=== PATIENT | male | born 1935 | race African-American/Black ===

== ENCOUNTER 2017-02-22 14:57 | Inpatient (IN) | payer OTHER ==
[~2017-02-22] VITALS: Ht 177.8 cm; Wt 64.9 kg
--- NOTE | ~2017-02-22 | EKG ---
[address] [place] [address] ELECTROCARDIOGRAM REPORT Name: LAURO NORTH Room #: 444-P ADM IN M.R.#: [id number] Admission: 02/22/17 Attend Phys: Swapnil Keita DO Discharge: Date of : 37 Report #: [id number] THIS REPORT FOR: //name// [facility] ED Test Date: 2017-02-22 Test Time: 15:53:46 Pat Name: LAURO NORTH Department: Room: 444 Gender: M [employer]: MZKENDALL : 1935 Requested By: Andrew Jimenez Order Number: [id number] MD: Shun Rodriguez Measurements Intervals [place] Rate: 79 P: MT: QRS: 67 QRSD: 100 T: 90 QT: 362 QTc: 416 Interpretive Statements Normal sinus rhythm Nonspecific repol abnormality, diffuse leads Artifact in lead(s) I,III,V1,V2,V3,V4,V5,V6 Compared to ECG 12/26/2016 15:43:52 Early repolarization now present no significant change was found Electronically Signed On 02-23-2017 11:48:02 CDT by Shun Rodriguez [email or web address] <ELECTRONICALLY SIGNED> By: Shun Rodriguez MD, [facility] 02/23/17 1148 1553 1553 Shun Rodriguez MD, FAC /EPI
--- NOTE | ~2017-02-22 | EEG ---
Formerly [facility] [place] [address] ELECTROENCEPHALOGRAM Name: LAURO NORTH Room #: 446-P [facility] IN M.R.#: [id number] Admission: 02/22/17 Attend Phys: Jocy Callahan MD Discharge: 02/26/17 Date of : 37 Report #: [id number] THIS REPORT FOR: //name// CC: Swapnil Alston DATE OF SERVICE: 02/24/2017 This patient is being evaluated for altered mental status. EEG was done to further evaluate that. EEG was done by placing the electrodes by standard 10-20 system of electrode placement. Background activity in this patient does go up to about 9-10 Hz, but throughout the record, it is intermixed with theta range slowing on both sides. Photic stimulation is unremarkable. The patient appeared to be drowsy during part of this EEG and that is associated with bilateral slowing. Photic stimulation is unremarkable. IMPRESSION: This is a moderately abnormal EEG because it is intermixed with theta range slowing on both sides. That is a nonspecific abnormality, which can occur with encephalopathy, dementia, effect of psychotropic medication, etc. No active epileptiform activity was noticed. Thank you very much for this referral. <ELECTRONICALLY SIGNED> By: Domenic Gonzalez MD 03/02/17 0731 [id number] 1714 Domenic Gonzalez MD /nt
[~2017-02-22 14:57] MED LIST: ACETAMINOPHEN325 M1 PO; AMLODIPINE BESY10 MG PO; ARICEPT 5 MG TAB5 MG PO; ARICEPT10 M1 PO; ARICEPT10 MG PO; ASPIR 8181 MG PO; ASPIRIN81 M2 PO; B12INJ PO; CARDURA2 MG PO; CARDURA4 MG PO; CIPROFLOXACIN500 M1 PO; CLARITIN10 MG PO; COLACE100 MG PO; ENOXAPARIN40 MG/0.1 SUBQ; EXELON1 EAC2 TRANSDERM; EXELON4.5 MG TRANSDERM; GLIPIZIDE ER5 MG PO; GLUCAGEN1 M2 IM; GLUCOPHAGE XR500 MG PO; GLUCOSE4 GM PO; GLUCOTROL XL2.5 MG PO; K-DUR 20 MEQ T20 MEQ PO; KLOR-CON 1010 MEQ PO; KOMBIGLYZE XR1 EAC1 PO; KOMBIGLYZE XR1 EAC2; LAMICTAL 25 MG25 M1 PO; LAMICTAL XR25 MG PO; LIPITOR 20 MG T20 M1 PO; LISINOPRIL20 MG PO; LISINOPRIL40 MG PO; LOPRESSOR 50 MG50 M1 PO; LOPRESSOR25 PO; LOPRESSOR50 PO; METFORMIN HCL1000 M1 PO; METOPROLOL TARTRATE PO; MIRALAX255 GM PO; NAMENDA 5 MG TAB5 M1 PO; NAPROSYN250 MG PO; NAPROSYN375 MG PO; NAPROSYN500 MG PO; NORVASC5 MG PO; NOVOLOG100 UNIT/1 SUBQ; OXYBUTYNIN 5 MG5 M1 OR; REGLAN 10 MG TA10 MG PO; REMERON15 MG PO; SENNA CONCENTR8.6 MG PO; SEROQUEL 12.512.5 MG PO; SEROQUEL 25 MG25 M1 PO; SIMVASTATIN20 MG PO; TAMSULOSIN HCL0.4 MG PO; TOPROL XL50 MG PO; TOVIAZ4 MG PO; TYLENOL325 MG PO; VANCOMYCIN100 MG/M1 PO; VITAMIN B-12500 MCG PO; VITAMIN D1000 UNI1 PO; VITAMIN D31000 UNI2 PO; VYTORIN 10-401 EACH PO; ZETIA10 MG PO; ZOCOR20 MG PO; [UNRECOGNIZED DRUG - OTHER] PO
[2017-02-22 14:58] VITALS: BP 146/99
[2017-02-22 15:44] LABS: ABSOLUTE NEUTROPHILS 2.9 thou/uL (1.4-8.2); BASOPHILS 0.8 % (0.0-2.0); EOSINOPHILS 2.7 % (0.0-3.0); HEMATOCRIT 38.3 % (42.0-52.0); LYMPHOCYTES 28.1 % (24.0-44.0); MCHC 33.9 g/dL (28.0-37.0); MCV 88.3 fL (80.0-100.0); MONOCYTES 6.9 % (1.0-8.0); PLATELET COUNT 170 thou/uL (150-400); POLYS 61.5 % (36.0-66.0); RBC 4.34 mil/uL (4.50-6.00); WBC 4.7 thou/uL (4.0-11.0)
[2017-02-22 15:46] LABS: MANUAL DIFF NO
[2017-02-22 16:01] LABS: APTT 26.3 Seconds (24.5-32.8); INR 1.1; PROTIME 11.4 Seconds (9.3-11.4)
[2017-02-22 16:25] LABS: ALBUMIN 3.7 g/dL (3.4-5.0); ALKALINE PHOSPHATASE 168 U/L (46-116); ANION GAP 14 mmol/L (7-16); BUN 25 mg/dL (7-18); CALCIUM 9.4 mg/dL (8.5-10.1); CHLORIDE 104 mmol/L (98-107); CO2 24 mmol/L (21-32); CREATININE 1.6 mg/dL (0.7-1.3); GLUCOSE 132 mg/dL (74-106); MAGNESIUM 1.8 mg/dL (1.8-2.4); NT-PRO BRAIN NAT PEPTIDE 466 pg/mL (<300); POTASSIUM 4.2 mmol/L (3.5-5.1); SGOT 48 U/L (15-37); SGPT 84 U/L (30-65); SODIUM 142 mmol/L (136-145); TOTAL BILIRUBIN 0.8 mg/dL (<0.1-1.0); TOTAL PROTEIN 7.6 g/dL (6.4-8.2); TROPONIN-I < 0.04 ng/mL (<0.04-0.07)
[2017-02-22] MEDS ORDERED: SEROQUEL 25 MG25 M1 PO (19:35)
[2017-02-22 19:37] VITALS: BP 144/72
[2017-02-22 20:05] VITALS: BP 106/68
[2017-02-23] VITALS (7 sets, daily range): BP systolic 133–179; BP diastolic 62–100
[2017-02-23 04:40] LABS: ABSOLUTE NEUTROPHILS 3.4 thou/uL (1.4-8.2); BASOPHILS 0.6 % (0.0-2.0); EOSINOPHILS 0.8 % (0.0-3.0); HEMATOCRIT 35.5 % (42.0-52.0); HEMOGLOBIN 11.7 gm/dL (14.0-18.0); LYMPHOCYTES 12.1 % (24.0-44.0); MCH 29.1 pg (26.0-34.0); MCV 88.2 fL (80.0-100.0); MONOCYTES 5.5 % (1.0-8.0); PLATELET COUNT 164 thou/uL (150-400); RBC 4.03 mil/uL (4.50-6.00); RDW 14.7 % (10.5-14.5); WBC 4.2 thou/uL (4.0-11.0)
[2017-02-23 04:57] LABS: CALCIUM 9.1 mg/dL (8.5-10.1); CREATININE 1.2 mg/dL (0.7-1.3); MANUAL DIFF NO; POTASSIUM 3.6 mmol/L (3.5-5.1)
[2017-02-23] MEDS ORDERED: ARTHRITIS PAIN650 MG PO (05:52)
[2017-02-24] VITALS (8 sets, daily range): BP systolic 135–169; BP diastolic 74–94
[2017-02-24 05:31] LABS: ABSOLUTE NEUTROPHILS 3.1 thou/uL (1.4-8.2); BASOPHILS 0.4 % (0.0-2.0); EOSINOPHILS 1.9 % (0.0-3.0); HEMATOCRIT 34.1 % (42.0-52.0); HEMOGLOBIN 11.4 gm/dL (14.0-18.0); LYMPHOCYTES 24.6 % (24.0-44.0); MCH 29.1 pg (26.0-34.0); MCHC 33.4 g/dL (28.0-37.0); MCV 87.2 fL (80.0-100.0); MONOCYTES 9.3 % (1.0-8.0); PLATELET COUNT 166 thou/uL (150-400); POLYS 63.8 % (36.0-66.0); RBC 3.91 mil/uL (4.50-6.00); WBC 4.8 thou/uL (4.0-11.0)
[2017-02-24 05:33] LABS: MANUAL DIFF NO
[2017-02-24 05:48] LABS: CALCIUM 8.7 mg/dL (8.5-10.1); CREATININE 1.4 mg/dL (0.7-1.3)
[2017-02-24 06:07] LABS: POTASSIUM 2.9 mmol/L (3.5-5.1)
[2017-02-25 03:45] VITALS: BP 153/80
[2017-02-25 07:51] VITALS: BP 147/56
[2017-02-25 12:00] VITALS: BP 113/58
[2017-02-25 16:00] VITALS: BP 106/57
[2017-02-25 20:08] VITALS: BP 113/68
[2017-02-26 03:55] VITALS: BP 140/69
[2017-02-26 08:00] VITALS: BP 128/80
[2017-02-26 08:31] VITALS: BP 128/80
[2017-02-26 12:29] VITALS: BP 82/52
== END 2017-02-26 13:30 | DRG 683 ==
LOC: ER 14:57 → 4S 17:53 → EROBS 17:53 → 4S 19:39
PROVIDERS: Emergency Medicine; Family Medicine
DX: N17.9 Acute kidney failure, unspecified (principal); N39.0 Urinary tract infection, site not specified; R56.9 Unspecified convulsions; R41.82 Altered mental status, unspecified; N40.0 Benign prostatic hyperplasia without lower urinary tract symptoms; E78.5 Hyperlipidemia, unspecified; E86.0 Dehydration; G30.9 Alzheimer's disease, unspecified; E11.22 Type 2 diabetes mellitus with diabetic chronic kidney disease; I12.9 Hypertensive chronic kidney disease with stage 1 through stage 4 chronic kidney disease, or unspecified chronic kidney disease; N18.9 Chronic kidney disease, unspecified; F02.80 Dementia in other diseases classified elsewhere, unspecified severity, without behavioral disturbance, psychotic disturbance, mood disturbance, and anxiety; E83.42 Hypomagnesemia; Z86.73 Personal history of transient ischemic attack (TIA), and cerebral infarction without residual deficits; Z88.0 Allergy status to penicillin; Z88.8 Allergy status to other drugs, medicaments and biological substances; Z79.899 Other long term (current) drug therapy; Z91.81 History of falling
CPT/HCPCS: 10100

== ENCOUNTER 2017-03-02 15:35 | Emergency (ER) | payer OTHER ==
[~2017-03-02] VITALS: Ht 185.4 cm; Wt 79.4 kg
--- NOTE | ~2017-03-02 | EKG ---
[place] [address] [facility] [place] [address] ELECTROCARDIOGRAM REPORT Name: LAURO NORTH Room #: DEP [facility] UCLAAaron#: [id number] Admission: 03/02/17 Attend Phys: Discharge: 03/02/17 Date of : 37 Report #: [id number] THIS REPORT FOR: //name// [facility] ED Test Date: 2017-03-02 Test Time: 15:42:43 Pat Name: LAURO NORTH Department: Room: Gender: M [employer]: mahesh mcbride : 1935 Requested By: Dorothea Graf Order Number: [id number] MD: Shun Rodriguez Measurements Intervals [place] Rate: 63 P: 119 NE: 210 QRS: 79 QRSD: 85 T: 131 QT: 382 QTc: 392 Interpretive Statements Sinus rhythm Abnrm T, consider ischemia, anterolateral lds Compared to ECG 02/22/2017 15:53:46 no significant change was found Electronically Signed On 03-03-2017 8:33:59 CDT by Shun Rodriguez [email or web address] <ELECTRONICALLY SIGNED> By: Shun Rodriguez MD, [facility] 03/03/17 0833 [id number] 154 Shun Rodriguez MD, [facility] /EPI
[~2017-03-02 15:35] MED LIST changes: +ARTHRITIS PAIN650 MG PO
[2017-03-02 15:52] LABS: ABSOLUTE NEUTROPHILS 2.7 thou/uL (1.4-8.2); EOSINOPHILS 2.9 % (0.0-3.0); HEMOGLOBIN 11.1 gm/dL (14.0-18.0); LYMPHOCYTES 21.3 % (24.0-44.0); MCH 29.4 pg (26.0-34.0); MCHC 33.5 g/dL (28.0-37.0); MCV 87.7 fL (80.0-100.0); MONOCYTES 6.5 % (1.0-8.0); PLATELET COUNT 185 thou/uL (150-400); POLYS 68.3 % (36.0-66.0); RBC 3.77 mil/uL (4.50-6.00); RDW 14.4 % (10.5-14.5); WBC 3.9 thou/uL (4.0-11.0)
[2017-03-02 15:53] LABS: MANUAL DIFF NO
[2017-03-02 16:02] LABS: ANION GAP 7 mmol/L (7-16); BUN 30 mg/dL (7-18); CALCIUM 8.5 mg/dL (8.5-10.1); CHLORIDE 106 mmol/L (98-107); CO2 31 mmol/L (21-32); CREATININE 1.7 mg/dL (0.7-1.3); GLUCOSE 239 mg/dL (74-106); POTASSIUM 3.6 mmol/L (3.5-5.1); SODIUM 144 mmol/L (136-145)
[2017-03-02 16:11] LABS: ALBUMIN 3.2 g/dL (3.4-5.0); ALKALINE PHOSPHATASE 143 U/L (46-116); SGOT 30 U/L (15-37); SGPT 49 U/L (30-65); TOTAL BILIRUBIN 0.3 mg/dL (<0.1-1.0); TOTAL PROTEIN 6.7 g/dL (6.4-8.2); TROPONIN-I < 0.04 ng/mL (<0.04-0.07)
[2017-03-02 17:42] LABS: URINE BILIRUBIN NEGATIVE (Negative); URINE BLOOD NEGATIVE (Negative); URINE COLOR YELLOW; URINE GLUCOSE-RANDOM* TRACE (Negative); URINE KETONES NEGATIVE (Negative); URINE NITRITE NEGATIVE (Negative); URINE PROTEIN (DIPSTICK) NEGATIVE (Negative); URINE UROBILINOGEN 0.2 E.U./dl (0.2-1.0)
== END 2017-03-02 18:48 | disposition home or self-care (01) ==
LOC: ER 15:35
PROVIDERS: Physician Assistant
DX: R42 Dizziness and giddiness (principal); R53.1 Weakness; E11.22 Type 2 diabetes mellitus with diabetic chronic kidney disease; I12.9 Hypertensive chronic kidney disease with stage 1 through stage 4 chronic kidney disease, or unspecified chronic kidney disease; N18.9 Chronic kidney disease, unspecified; E78.5 Hyperlipidemia, unspecified; F03.90 Unspecified dementia, unspecified severity, without behavioral disturbance, psychotic disturbance, mood disturbance, and anxiety; N40.0 Benign prostatic hyperplasia without lower urinary tract symptoms; Z86.73 Personal history of transient ischemic attack (TIA), and cerebral infarction without residual deficits; Z88.0 Allergy status to penicillin